=== PATIENT | female | born 1995 | race Two or more races ===

== ENCOUNTER 2019-01-31 13:40 | Emergency (ER) | payer MEDICAID ==
[~2019-01-31] VITALS: Ht 167.6 cm; Wt 52.0 kg
[2019-01-31 14:03] VITALS: BP 99/59
== END 2019-01-31 14:29 | disposition home or self-care (01) ==
LOC: ER 13:40
DX: Z48.02 Encounter for removal of sutures (principal); F17.210 Nicotine dependence, cigarettes, uncomplicated
CPT/HCPCS: 99283; Z7610